=== PATIENT | female | born 1960 | race African-American/Black ===

== ENCOUNTER 2016-02-16 16:31 | Inpatient (IN) | payer MEDICAID ==
[~2016-02-16] VITALS: Ht 167.6 cm; Wt 95.4 kg
[~2016-02-16 16:31] MED LIST: AML5T PO; CARI-277 PO; DIAZ10TA3; DOCU-94 PO; ERGO1CAP6; ESOM40CA39 PO; GABA-339; LISI-646; LORA2TAB89 PO; NOR10T PO; PROM25TA5 PO; SERT-160; SUCR1TAB; TRAZ100T2; TRIA37.577 PO
[2016-02-16 17:55] LABS: Basophils # (auto) 0 uL; Basophils % (auto) 0.6 % (0.0-2.0); DEFINITIVE VIEW TRANSMISSION; Eosinophils # (auto) 0.1 uL; Eosinophils % (auto) 1.4 % (0.0-7.0); Hematocrit 37.8 % (36.0-46.0); Hemoglobin 12.1 g/dL (12.2-16.2); Lymphocytes # (auto) 1.3 uL; Lymphocytes % (auto) 17.6 % (10.0-50.0); Mean Corpuscular Hemoglobin 26.6 pg (28.0-32.0); Mean Corpuscular Volume 83.1 fL (80.0-100.0); Mean Platelet Volume 9.5 fL (7.4-10.4); Monocytes # (auto) 0.5 uL; Monocytes % (auto) 7.1 % (0.0-12.0); Neutrophils # (auto) 5.4 uL; Neutrophils % (auto) 73.3 % (37.0-80.0); Platelet Count (auto) 246 10^3/uL (140-450); White Blood Cell 7.4 10^3/uL (4.4-10.8)
[2016-02-16 18:05] LABS: Albumin 3.8 g/dL (3.4-5.0); BUN/Creatinine Ratio 13.3; Calcium 9.3 mg/dL (8.5-10.1); Potassium 4.3 mmol/L (3.5-5.1)
[2016-02-16 18:08] LABS: Bilirubin, Total 0.2 mg/dL (0.2-1.0); Total Protein 7.8 g/dL (6.4-8.2)
[2016-02-16] MEDS ORDERED: SODIUM CHLORIDE 0.9% 1,000 ML IV ONE (19:26)
[2016-02-16] MEDS ORDERED: HYDROmorphone HCL 2 MG/ML VL IV ONE (19:30)
[2016-02-16] MEDS ORDERED: InsuLIN REG 1unit/0.01ml Soln (100units/ml) IV ONE (19:30)
[2016-02-16] MEDS ORDERED: ONDANSETRON HCL 4 MG/2 ML VIAL IV ONE (19:30)
[2016-02-16] MEDS ORDERED: LACTULOSE 20Gm/30ML SOLN PO PRN (22:45)
[2016-02-16] MEDS ORDERED: DEXTROSE (50%) 50ML SYRG IV PRN (22:45)
[2016-02-16] MEDS ORDERED: ONDANSETRON HCL 4 MG/2 ML VIAL IV PRN (22:45)
[2016-02-16] MEDS: SODIUM CHLORIDE 0.9% 1,000 ML IV SCH (23:08)
[2016-02-16] MEDS: HYDROmorphone HCL 2 MG/ML VL IV PRN (23:21)
[2016-02-17] VITALS (7 sets, daily range): BP systolic 103–139; BP diastolic 46–83
[2016-02-17] MEDS: ACCU-CHEK COMFORT CURVE STRIP VI SCH ×5 (01:35→20:46)
[2016-02-17] MEDS: InsuLIN REG 1unit/0.01ml Soln (100units/ml) SC SCH ×5 (01:40→20:50)
[2016-02-17 05:35] LABS: Basophils # (auto) 0.1 uL; Basophils % (auto) 1.7 % (0.0-2.0); DEFINITIVE VIEW TRANSMISSION; Eosinophils # (auto) 0.2 uL; Eosinophils % (auto) 2.3 % (0.0-7.0); Hematocrit 32.8 % (36.0-46.0); Hemoglobin 10.5 g/dL (12.2-16.2); Lymphocytes # (auto) 2.5 uL; Lymphocytes % (auto) 32.4 % (10.0-50.0); Mean Corpuscular Hemoglobin 26.5 pg (28.0-32.0); Mean Corpuscular Volume 82.9 fL (80.0-100.0); Mean Platelet Volume 9.9 fL (7.4-10.4); Monocytes # (auto) 0.8 uL; Monocytes % (auto) 9.8 % (0.0-12.0); Neutrophils # (auto) 4.1 uL; Neutrophils % (auto) 53.8 % (37.0-80.0); Platelet Count (auto) 266 10^3/uL (140-450); Red Cell Distribution Width 14.1 % (11.6-16.0); White Blood Cell 7.7 10^3/uL (4.4-10.8)
[2016-02-17] MEDS: PROMETHAZINE HCL 25 MG/ML 1ML IV PRN ×2 (05:39→16:32)
[2016-02-17] MEDS: HYDROmorphone HCL 2 MG/ML VL IV PRN ×3 (05:39→18:41)
[2016-02-17 07:46] LABS: Albumin 3.3 g/dL (3.4-5.0); BUN/Creatinine Ratio 12.2; Bilirubin, Total 0.2 mg/dL (0.2-1.0); Potassium 3.6 mmol/L (3.5-5.1); Total Protein 6.6 g/dL (6.4-8.2)
[2016-02-17 08:12] LABS: Urine Bilirubin Negative (Negative); Urine Blood Negative /uL (Negative); Urine Color Yellow (Yellow); Urine Ketone Negative (Negative); Urine Nitrite Negative (Negative); Urine RBC <1 /hpf (0 - 4); Urine Urobilinogen Normal (Negative)
[2016-02-17 08:14] LABS: Urine Glucose 4+ mg/dL (Normal)
[2016-02-17] MEDS: PANTOPRAZOLE SODIUM 40 MG/10 ML VIAL IV SCH (09:33)
[2016-02-17] MEDS: LISINOPRIL 20 MG TAB PO SCH (09:34)
[2016-02-17] MEDS: ENOXAPARIN SOD 30 MG/0.3 ML SYRINGE SC SCH (09:34)
[2016-02-17] MEDS: HCTZ 25 MG TAB PO SCH (09:34)
[2016-02-17] MEDS: SODIUM CHLORIDE 0.9% 1,000 ML IV SCH ×2 (11:42→23:38)
[2016-02-17] MEDS ORDERED: glyBURIDE 5 MG TAB PO ONE (14:00)
[2016-02-17] MEDS ORDERED: DEXTROSE (50%) 50ML SYRG IV PRN (14:00)
[2016-02-17] MEDS: glyBURIDE 5 MG TAB PO SCH (23:33)
[2016-02-17] MEDS: INSULIN DETEMIR(LEVEMIR) 1unit/0.01ml Soln (100units/ml) SC SCH (23:37)
[2016-02-18] MEDS: ACCU-CHEK COMFORT CURVE STRIP VI SCH ×5 (00:50→15:54)
[2016-02-18] MEDS: InsuLIN REG 1unit/0.01ml Soln (100units/ml) SC SCH ×5 (00:57→16:01)
[2016-02-18] MEDS: PROMETHAZINE HCL 25 MG/ML 1ML IV PRN ×3 (05:27→17:01)
[2016-02-18] MEDS: HYDROmorphone HCL 2 MG/ML VL IV PRN ×4 (05:27→17:01)
[2016-02-18 05:42] VITALS: BP 118/60
[2016-02-18 09:00] VITALS: BP 146/62
[2016-02-18] MEDS: ENOXAPARIN SOD 30 MG/0.3 ML SYRINGE SC SCH (10:00)
[2016-02-18] MEDS: PANTOPRAZOLE SODIUM 40 MG/10 ML VIAL IV SCH (10:00)
[2016-02-18] MEDS: HCTZ 25 MG TAB PO SCH (10:00)
[2016-02-18] MEDS: LISINOPRIL 20 MG TAB PO SCH (10:00)
[2016-02-18] MEDS: glyBURIDE 5 MG TAB PO SCH (10:03)
[2016-02-18] MEDS: INSULIN DETEMIR(LEVEMIR) 1unit/0.01ml Soln (100units/ml) SC SCH (10:36)
[2016-02-18] MEDS: SODIUM CHLORIDE 0.9% 1,000 ML IV SCH (11:39)
[2016-02-18 13:00] VITALS: BP 122/60
[2016-02-18] MEDS ORDERED: GLY5T PO (14:45)
[2016-02-18] MEDS ORDERED: LEVEMIR SC (14:45)
[2016-02-18] MEDS ORDERED: LISI-646 PO (14:45)
[2016-02-18 17:00] VITALS: BP 138/108
[2016-02-18 17:13] VITALS: BP 138/108
== END 2016-02-18 19:30 | disposition home health service (06) | DRG 420 ==
LOC: ER 16:32 → TELE-WESTW 16:33
PROVIDERS: ADMIT Family Medicine; ATTEND Internal Medicine
DX: E11.65 Type 2 diabetes mellitus with hyperglycemia (principal); N17.9 Acute kidney failure, unspecified; M12.50 Traumatic arthropathy, unspecified site; E66.01 Morbid (severe) obesity due to excess calories; I10 Essential (primary) hypertension; E86.0 Dehydration; F32.9 Major depressive disorder, single episode, unspecified; M79.643 Pain in unspecified hand; E78.5 Hyperlipidemia, unspecified; F41.9 Anxiety disorder, unspecified; F51.04 Psychophysiologic insomnia; G89.4 Chronic pain syndrome; Z79.4 Long term (current) use of insulin; Z82.49 Family history of ischemic heart disease and other diseases of the circulatory system; Z83.3 Family history of diabetes mellitus; Z85.43 Personal history of malignant neoplasm of ovary; Z88.6 Allergy status to analgesic agent; Z88.8 Allergy status to other drugs, medicaments and biological substances; Z79.899 Other long term (current) drug therapy; Z90.710 Acquired absence of both cervix and uterus; Z90.49 Acquired absence of other specified parts of digestive tract; Z68.33 Body mass index [BMI] 33.0-33.9, adult
CPT/HCPCS: 36415; 80053; 80061; 81001; 82962; 83036; 83735; 85025; 87081; 94761; 96361; 96374; 96375; C9113; J1815; J2405

== ENCOUNTER 2016-03-14 16:50 | Emergency (ER) | payer MEDICAID ==
[~2016-03-14] VITALS: Ht 167.6 cm; Wt 90.8 kg
[~2016-03-14 16:50] MED LIST changes: +GLY5T PO; +LEVEMIR SC; +LISI-646 PO
[2016-03-14 20:21] VITALS: BP 133/81
[2016-03-14] MEDS ORDERED: PROMETHAZINE HCL 25 MG/ML 1ML IM ONE (21:15)
[2016-03-14] MEDS ORDERED: HYDROmorphone HCL 2 MG/ML VL IM ONE (21:15)
== END 2016-03-14 22:04 | disposition home or self-care (01) ==
LOC: ER 16:55
DX: G89.29 Other chronic pain (principal); M54.5 Low back pain; M51.36 Other intervertebral disc degeneration, lumbar region; M54.16 Radiculopathy, lumbar region; M19.90 Unspecified osteoarthritis, unspecified site; E11.9 Type 2 diabetes mellitus without complications; I10 Essential (primary) hypertension; Z85.9 Personal history of malignant neoplasm, unspecified; F12.10 Cannabis abuse, uncomplicated; Z88.6 Allergy status to analgesic agent; Z88.8 Allergy status to other drugs, medicaments and biological substances; Z79.4 Long term (current) use of insulin; Z79.899 Other long term (current) drug therapy
CPT/HCPCS: 82962; 96372; 99284; J1170; J2550

== ENCOUNTER 2016-04-02 16:33 | Emergency (ER) | payer MEDICAID ==
[~2016-04-02] VITALS: Ht 167.6 cm; Wt 89.4 kg
[2016-04-02 16:45] VITALS: BP 139/88
[2016-04-02] MEDS ORDERED: MEPERIDINE HCL (50 MG/ML) 1 ML VIAL IM ONE (19:45)
[2016-04-02] MEDS ORDERED: PROMETHAZINE HCL 25 MG/ML 1ML IM ONE (19:45)
== END 2016-04-02 20:08 | disposition home or self-care (01) ==
LOC: ER 16:39
DX: G89.4 Chronic pain syndrome (principal); M54.5 Low back pain; F11.20 Opioid dependence, uncomplicated; E11.9 Type 2 diabetes mellitus without complications; I10 Essential (primary) hypertension; M19.90 Unspecified osteoarthritis, unspecified site; Z79.4 Long term (current) use of insulin; Z88.6 Allergy status to analgesic agent; Z85.9 Personal history of malignant neoplasm, unspecified; Z79.899 Other long term (current) drug therapy; F12.10 Cannabis abuse, uncomplicated
CPT/HCPCS: 82962; 96372; 99284; J2175; J2550

== ENCOUNTER 2016-05-12 16:04 | Emergency (ER) | payer MEDICAID ==
[~2016-05-12] VITALS: Ht 172.7 cm; Wt 91.2 kg
[2016-05-12 16:23] VITALS: BP 145/92
[2016-05-12] MEDS ORDERED: HYDROmorphone HCL 2 MG/ML VL IM ONE (19:45)
[2016-05-12] MEDS ORDERED: PROMETHAZINE HCL 25 MG/ML 1ML IM ONE (19:45)
== END 2016-05-12 20:49 | disposition home or self-care (01) ==
LOC: ER 16:09
DX: G89.4 Chronic pain syndrome (principal); R51 Headache; G62.9 Polyneuropathy, unspecified; F11.20 Opioid dependence, uncomplicated; E11.9 Type 2 diabetes mellitus without complications; I10 Essential (primary) hypertension; M19.90 Unspecified osteoarthritis, unspecified site; Z85.9 Personal history of malignant neoplasm, unspecified; F12.10 Cannabis abuse, uncomplicated; Z88.6 Allergy status to analgesic agent; Z88.8 Allergy status to other drugs, medicaments and biological substances; Z79.899 Other long term (current) drug therapy; M54.2 Cervicalgia
CPT/HCPCS: 82962; 96372; 99284; J1170; J2550

== ENCOUNTER 2016-07-28 13:22 | Emergency (ER) | payer MEDICAID, OTHER ==
[~2016-07-28] VITALS: Ht 167.6 cm; Wt 90.7 kg
[2016-07-28 14:07] VITALS: BP 128/95
[2016-07-28] MEDS ORDERED: MORPHINE SULFATE 4 MG/ML SYRG IM ONE (15:15)
[2016-07-28] MEDS ORDERED: PROMETHAZINE HCL 25 MG/ML 1ML IM ONE (15:15)
== END 2016-07-28 16:01 | disposition home or self-care (01) ==
LOC: ER 13:22
DX: M46.86 Other specified inflammatory spondylopathies, lumbar region (principal); M06.9 Rheumatoid arthritis, unspecified; I10 Essential (primary) hypertension; E11.9 Type 2 diabetes mellitus without complications; Z90.710 Acquired absence of both cervix and uterus; Z85.9 Personal history of malignant neoplasm, unspecified; F12.10 Cannabis abuse, uncomplicated; Z79.4 Long term (current) use of insulin; Z88.6 Allergy status to analgesic agent; Z79.899 Other long term (current) drug therapy
CPT/HCPCS: 96372; 99284; J2270; J2550

== ENCOUNTER 2016-08-22 17:14 | Observation (INO) | payer MEDICARE, OTHER ==
[~2016-08-22] VITALS: Ht 167.6 cm; Wt 90.7 kg
[2016-08-22 17:42] LABS: CONDITION Y; Eosinophils # (auto) 0.1 uL; Lymphocytes # (auto) 2.5 uL; Mean Corpuscular Hgb Conc. 33.6 g/dL (32.0-36.0); Neutrophils # (auto) 5.7 uL; White Blood Cell 9.1 10^3/uL (4.4-10.8)
[2016-08-22 17:44] LABS: Basophils # (auto) 0.1 uL; Basophils % (auto) 1.1 % (0.0-2.0); Eosinophils % (auto) 1.6 % (0.0-7.0); Hematocrit 38.5 % (36.0-46.0); Hemoglobin 12.9 g/dL (12.2-16.2); Lymphocytes % (auto) 27.6 % (10.0-50.0); Mean Corpuscular Hemoglobin 28.1 pg (28.0-32.0); Mean Corpuscular Volume 83.5 fL (80.0-100.0); Mean Platelet Volume 8.2 fL (7.4-10.4); Monocytes # (auto) 0.6 uL; Monocytes % (auto) 6.8 % (0.0-12.0); Neutrophils % (auto) 62.9 % (37.0-80.0); Platelet Count (auto) 323 10^3/uL (140-450); Red Cell Distribution Width 14.4 % (11.6-16.0)
[2016-08-22 18:07] LABS: BUN/Creatinine Ratio 14.8; Bilirubin, Total 0.1 mg/dL (0.2-1.0); Calcium 9.6 mg/dL (8.5-10.1); Potassium 3.4 mmol/L (3.5-5.1); Total Protein 7.9 g/dL (6.4-8.2)
[2016-08-22 18:08] LABS: Urine RBC None Seen /hpf (0 - 4)
[2016-08-22] MEDS ORDERED: SODIUM CHLORIDE 0.9% 1,000 ML IV ONE (18:30)
[2016-08-22] MEDS ORDERED: ONDANSETRON HCL 4 MG/2 ML VIAL IV ONE (18:30)
[2016-08-22 18:39] LABS: Urine Bilirubin Negative (Negative); Urine Blood Negative /uL (Negative); Urine Color Yellow (Yellow); Urine Glucose Normal (Normal); Urine Ketone Negative (Negative); Urine Nitrite Negative (Negative); Urine Squamous Epithelial Cell FEW /hpf (<5); Urine Urobilinogen Normal (Negative)
[2016-08-22] MEDS ORDERED: MORPHINE SULF INJ 2 MG/ML SYRINGE 1ML IV ONE (19:00)
[2016-08-22] MEDS ORDERED: PROMETHAZINE HCL 25 MG/ML 1ML IV ONE (19:00)
[2016-08-22 19:18] LABS: INR 0.96 (0.9-1.15); Partial Thromboplastin Time 26.8 sec (22.64-33.71); Prothrombin Time 10.5 sec (9.37-12.3)
[2016-08-22] MEDS ORDERED: MEPERIDINE HCL (25 MG/ML) 1ML VIAL IV ONE (21:30)
[2016-08-22] MEDS ORDERED: POTASSIUM CHL 20 Meq TABLET PO ONE (22:00)
[2016-08-22 22:10] VITALS: BP 152/86
== END 2016-08-22 22:11 | disposition home or self-care (01) | DRG 556 ==
LOC: ER 17:24 → OVERFLOW 18:20 → ER 22:11
PROVIDERS: ADMIT Family Medicine; ATTEND Family Medicine
DX: M79.641 Pain in right hand (principal); M79.642 Pain in left hand; I10 Essential (primary) hypertension; F41.9 Anxiety disorder, unspecified; E11.9 Type 2 diabetes mellitus without complications; M19.90 Unspecified osteoarthritis, unspecified site; F32.9 Major depressive disorder, single episode, unspecified; Z83.3 Family history of diabetes mellitus; W34.00XA Accidental discharge from unspecified firearms or gun, initial encounter; Y93.89 Activity, other specified; Y92.69 Other specified industrial and construction area as the place of occurrence of the external cause; Y99.8 Other external cause status
CPT/HCPCS: 36415; 71010; 80053; 81001; 82962; 83735; 84484; 85025; 85610; 85730; 93005; 96361; 96374; 96375; 99285; G0378; J2175; J2270; J2550; J7030

== ENCOUNTER 2016-11-29 20:35 | Emergency (ER) | payer OTHER ==
[~2016-11-29] VITALS: Ht 167.6 cm; Wt 90.7 kg
[2016-11-29 20:40] VITALS: BP 108/85
[2016-11-29] MEDS ORDERED: HYDROmorphone HCL 2 MG/ML VL IM ONE (21:30)
[2016-11-29] MEDS ORDERED: PROMETHAZINE HCL 25 MG/ML 1ML IM ONE (21:30)
== END 2016-11-29 22:07 | disposition home or self-care (01) ==
LOC: ER 20:37
DX: G56.03 Carpal tunnel syndrome, bilateral upper limbs (principal); M19.90 Unspecified osteoarthritis, unspecified site; E11.9 Type 2 diabetes mellitus without complications; I10 Essential (primary) hypertension; Z90.710 Acquired absence of both cervix and uterus; Z90.49 Acquired absence of other specified parts of digestive tract; Z76.0 Encounter for issue of repeat prescription; Z79.899 Other long term (current) drug therapy; Z79.4 Long term (current) use of insulin
CPT/HCPCS: 96372; 99284; J1170; J2550

== ENCOUNTER 2016-12-20 11:42 | Emergency (ER) | payer OTHER, MEDICAID ==
[~2016-12-20] VITALS: Ht 167.6 cm; Wt 90.7 kg
[2016-12-20 12:32] VITALS: BP 126/72
[2016-12-20] MEDS ORDERED: HYDROmorphone HCL 2 MG/ML VL IM ONE (12:45)
[2016-12-20] MEDS ORDERED: ONDANSETRON HCL 4 MG/2 ML VIAL IM ONE (12:45)
[2016-12-20] MEDS ORDERED: PROMETHAZINE HCL 25 MG/ML 1ML IM ONE (13:00)
== END 2016-12-20 13:30 | disposition home or self-care (01) ==
LOC: ER 11:42
DX: G56.03 Carpal tunnel syndrome, bilateral upper limbs (principal); I10 Essential (primary) hypertension; E11.9 Type 2 diabetes mellitus without complications; M19.90 Unspecified osteoarthritis, unspecified site; Z79.4 Long term (current) use of insulin
CPT/HCPCS: 82962; 96372; 99284; J1170; J2405; J2550

== ENCOUNTER 2016-12-31 18:36 | Emergency (ER) | payer OTHER, MEDICAID ==
[~2016-12-31] VITALS: Ht 167.6 cm; Wt 87.5 kg
[2016-12-31 18:43] VITALS: BP 131/74
[2016-12-31] MEDS ORDERED: PROMETHAZINE HCL 25 MG/ML 1ML ONE (21:56)
[2016-12-31] MEDS ORDERED: HYDROmorphone HCL 2 MG/ML VL IM ONE (22:00)
[2016-12-31] MEDS ORDERED: PROMETHAZINE HCL 25 MG/ML 1ML IM ONE (22:15)
== END 2016-12-31 22:49 | disposition home or self-care (01) ==
LOC: ER 18:36
DX: M79.602 Pain in left arm (principal); M19.90 Unspecified osteoarthritis, unspecified site; E11.9 Type 2 diabetes mellitus without complications; I10 Essential (primary) hypertension; Z88.6 Allergy status to analgesic agent; Z79.82 Long term (current) use of aspirin; Z79.899 Other long term (current) drug therapy; Z90.49 Acquired absence of other specified parts of digestive tract; Z90.710 Acquired absence of both cervix and uterus
CPT/HCPCS: 96372; 99284; J1170; J2550

== ENCOUNTER 2017-01-20 20:18 | Emergency (ER) | payer OTHER, MEDICAID ==
[~2017-01-20] VITALS: Ht 167.6 cm; Wt 89.8 kg
[2017-01-20 20:35] VITALS: BP 138/96
== END 2017-01-20 23:51 | disposition home or self-care (01) ==
LOC: ER 20:18
DX: S61.412A Laceration without foreign body of left hand, initial encounter (principal); M79.642 Pain in left hand; M19.90 Unspecified osteoarthritis, unspecified site; E11.9 Type 2 diabetes mellitus without complications; I10 Essential (primary) hypertension; Z90.49 Acquired absence of other specified parts of digestive tract; Z90.710 Acquired absence of both cervix and uterus; Z88.6 Allergy status to analgesic agent; Z88.8 Allergy status to other drugs, medicaments and biological substances; X58.XXXA Exposure to other specified factors, initial encounter; Y93.89 Activity, other specified; Y92.89 Other specified places as the place of occurrence of the external cause; Y99.8 Other external cause status

== ENCOUNTER 2017-02-16 15:58 | Emergency (ER) | payer OTHER, MEDICAID ==
[~2017-02-16] VITALS: Ht 165.1 cm; Wt 87.1 kg
[2017-02-16 16:52] VITALS: BP 125/78
== END 2017-02-16 19:27 | disposition left against medical advice (07) ==
LOC: EDBD → ER 16:01
DX: M79.642 Pain in left hand (principal); Z53.21 Procedure and treatment not carried out due to patient leaving prior to being seen by health care provider

== ENCOUNTER 2017-02-21 13:52 | Emergency (ER) | payer OTHER, MEDICAID ==
[~2017-02-21] VITALS: Ht 165.1 cm; Wt 87.5 kg
[2017-02-21 14:37] VITALS: BP 119/86
== END 2017-02-21 14:37 | disposition left against medical advice (07) ==
LOC: EDBD → ER 13:52
DX: R51 Headache (principal); R22.0 Localized swelling, mass and lump, head; Z53.21 Procedure and treatment not carried out due to patient leaving prior to being seen by health care provider

== ENCOUNTER 2017-02-27 22:44 | Emergency (ER) | payer OTHER, MEDICAID ==
[2017-02-28] MEDS ORDERED: ONDANSETRON ODT 4 MG TAB PO ONE (01:15)
[2017-02-28] MEDS ORDERED: HYDROmorphone HCL 2 MG/ML VL IM ONE (01:15)
[2017-02-28] MEDS ORDERED: PROMETHAZINE HCL 25 MG/ML 1ML IM ONE ×2 (01:30→01:45)
[2017-02-28 01:59] VITALS: BP 136/83
== END 2017-02-28 02:30 | disposition home or self-care (01) ==
LOC: EDBD → ER 22:46
DX: M79.641 Pain in right hand (principal); M79.642 Pain in left hand; E11.9 Type 2 diabetes mellitus without complications; I10 Essential (primary) hypertension; Z90.710 Acquired absence of both cervix and uterus; Z90.49 Acquired absence of other specified parts of digestive tract; Z88.6 Allergy status to analgesic agent; Z88.8 Allergy status to other drugs, medicaments and biological substances; Z79.4 Long term (current) use of insulin; Z79.899 Other long term (current) drug therapy; Z83.3 Family history of diabetes mellitus; Z82.49 Family history of ischemic heart disease and other diseases of the circulatory system
CPT/HCPCS: 96372; 99284; J1170; J2550; Q0162

== ENCOUNTER 2017-03-11 02:50 | Emergency (ER) | payer OTHER, MEDICAID ==
[~2017-03-11] VITALS: Ht 167.6 cm; Wt 92.5 kg
[2017-03-11 07:12] VITALS: BP 136/68
[2017-03-11] MEDS ORDERED: MEPERIDINE HCL (50 MG/ML) 1 ML VIAL IM ONE (07:45)
[2017-03-11] MEDS ORDERED: PROMETHAZINE HCL 25 MG/ML 1ML IM ONE (07:45)
== END 2017-03-11 08:04 | disposition home or self-care (01) ==
LOC: ER 02:50 → EDBD 02:50 → ER 08:04
DX: G89.29 Other chronic pain (principal); M79.642 Pain in left hand; I10 Essential (primary) hypertension; E11.9 Type 2 diabetes mellitus without complications; M19.90 Unspecified osteoarthritis, unspecified site; F12.10 Cannabis abuse, uncomplicated; F17.200 Nicotine dependence, unspecified, uncomplicated; Z90.49 Acquired absence of other specified parts of digestive tract; Z90.710 Acquired absence of both cervix and uterus; Z88.6 Allergy status to analgesic agent; Z88.8 Allergy status to other drugs, medicaments and biological substances; Z79.4 Long term (current) use of insulin; Z79.891 Long term (current) use of opiate analgesic; Z79.899 Other long term (current) drug therapy
CPT/HCPCS: 96372; 99284; J2175; J2550

== ENCOUNTER 2017-03-30 01:23 | Emergency (ER) | payer OTHER, MEDICAID ==
[~2017-03-30] VITALS: Ht 167.6 cm; Wt 89.5 kg
[2017-03-30] MEDS ORDERED: methylPREDNISolone SOD SUCC 125 MG/2 ML VL IM ONE (02:15)
[2017-03-30] MEDS ORDERED: methylPREDNISolone SOD SUCC 125 MG/2 ML VL ONE (02:30)
[2017-03-30] MEDS ORDERED: IPRATROPIUM BROM 0.5 MG/2.5ML INH SOL NEB ONE (02:30)
[2017-03-30] MEDS ORDERED: ALBUTEROL SULF 2.5 MG/0.5ML(0.5%) NEB SOLN NEB ONE (02:30)
[2017-03-30 03:15] VITALS: BP 131/63
== END 2017-03-30 03:55 | disposition home or self-care (01) ==
LOC: ER 01:25
DX: J06.9 Acute upper respiratory infection, unspecified (principal); I10 Essential (primary) hypertension; E11.9 Type 2 diabetes mellitus without complications
CPT/HCPCS: 71046; 87804; 94640; 99285; J2930

== ENCOUNTER 2017-05-08 07:37 | Emergency (ER) | payer OTHER, MEDICAID ==
[~2017-05-08] VITALS: Ht 167.6 cm; Wt 89.8 kg
[2017-05-08] MEDS ORDERED: SODIUM CHLORIDE 0.9% 1,000 ML IV ONE (09:53)
[2017-05-08] MEDS ORDERED: MORPHINE SULFATE 4 MG/ML SYR/VIAL IV ONE (10:00)
[2017-05-08] MEDS ORDERED: ONDANSETRON HCL 4 MG/2 ML VIAL IV ONE (10:00)
[2017-05-08 10:31] LABS: Urine Bacteria NONE SEEN /hpf (None Seen); Urine Blood Negative /uL (Negative); Urine Specific Gravity 1.026 (1.001-1.035); Urine WBC 5 /hpf (0 - 5)
[2017-05-08 11:07] LABS: Basophils # (auto) 0.1 uL; Eosinophils # (auto) 0.1 uL; Eosinophils % (auto) 1.3 % (0.0-7.0); Hematocrit 41.7 % (36.0-46.0); Hemoglobin 13.2 g/dL (12.2-16.2); Lymphocytes # (auto) 1.6 uL; Mean Corpuscular Hgb Conc. 31.6 g/dL (32.0-36.0); Mean Corpuscular Volume 88.7 fL (80.0-100.0); Monocytes # (auto) 0.8 uL; Monocytes % (auto) 15.6 % (0.0-12.0); Neutrophils # (auto) 2.7 uL; Neutrophils % (auto) 52.1 % (37.0-80.0); Nucleated Red Blood Cells % 0.1 %; Platelet Count (auto) 238 10^3/uL (140-450); Red Cell Distribution Width 13.9 % (11.8-14.3); White Blood Cell 5.3 10^3/uL (4.4-10.8)
[2017-05-08 11:30] LABS: BUN/Creatinine Ratio 9.6; Calcium 9.3 mg/dL (8.5-10.1); Potassium 4.2 mmol/L (3.5-5.1)
[2017-05-08 11:46] VITALS: BP 123/67
== END 2017-05-08 14:02 | disposition home or self-care (01) ==
LOC: ER 07:37
DX: M79.644 Pain in right finger(s) (principal); G89.18 Other acute postprocedural pain; Z89.021 Acquired absence of right finger(s); F41.9 Anxiety disorder, unspecified; F32.9 Major depressive disorder, single episode, unspecified; E11.9 Type 2 diabetes mellitus without complications; I10 Essential (primary) hypertension; K21.9 Gastro-esophageal reflux disease without esophagitis; F12.10 Cannabis abuse, uncomplicated; F43.10 Post-traumatic stress disorder, unspecified; Z87.11 Personal history of peptic ulcer disease; Z79.4 Long term (current) use of insulin; Z88.6 Allergy status to analgesic agent; Z88.8 Allergy status to other drugs, medicaments and biological substances
CPT/HCPCS: 36415; 80048; 81001; 85025; 96361; 96374; 96375; 99284; J2270; J2405; J7030

== ENCOUNTER 2017-06-02 19:09 | Emergency (ER) | payer MEDICARE, MEDICAID ==
[~2017-06-02] VITALS: Ht 167.6 cm; Wt 86.2 kg
[2017-06-02 19:25] VITALS: BP 155/90
[2017-06-02] MEDS ORDERED: ACETAMINOPHEN/CODEINE#3 (300/30mg) TAB PO ONE (21:45)
[2017-06-02] MEDS ORDERED: cefTRIAXone SOD 1,000 MG VL IM ONE (21:45)
[2017-06-02] MEDS ORDERED: TETANUS-DIPTH-ACEL PERTUSSIS 0.5ML SYRG IM ONE (21:45)
== END 2017-06-02 22:02 | disposition home or self-care (01) ==
LOC: ER 19:12
DX: S61.451A Open bite of right hand, initial encounter (principal); M19.90 Unspecified osteoarthritis, unspecified site; E11.9 Type 2 diabetes mellitus without complications; I10 Essential (primary) hypertension; M54.9 Dorsalgia, unspecified; G89.4 Chronic pain syndrome; W54.0XXA Bitten by dog, initial encounter; Z79.4 Long term (current) use of insulin; Y93.89 Activity, other specified; Y99.8 Other external cause status; Y92.89 Other specified places as the place of occurrence of the external cause
CPT/HCPCS: 73130; 82962; 90471; 90715; 96372; 99284; J0696

== ENCOUNTER 2022-04-14 04:59 | Inpatient (IN) | payer MEDICARE, MEDICAID ==
[~2022-04-14] VITALS: Ht 167.6 cm; Wt 77.9 kg
[~2022-04-14 04:59] MED LIST changes: -GLY5T PO; +GLYB5TAB9 PO; -LISI-646; -LISI-646 PO; +LISI20TA28; +LISI20TA28 PO; -TRAZ100T2; +TRAZ100T3
[2022-04-14 06:39] LABS: Basophils # (auto) 0 10 ^3/uL (0-0.2); Basophils % (auto) 0.8 % (0.0-2.0); Eosinophils # (auto) 0.1 10 ^3/uL (0-0.8); Eosinophils % (auto) 2.5 % (0.0-7.0); Hematocrit 39.2 % (36.0-46.0); Lymphocytes # (auto) 1.8 10 ^3/uL (0.4-5.4); Lymphocytes % (auto) 32.9 % (10.0-50.0); Mean Corpuscular Hemoglobin 28.8 pg (28.0-32.0); Mean Corpuscular Hgb Conc. 33.1 g/dL (32.0-36.0); Monocytes # (auto) 0.6 10 ^3/uL (0-1.3); Monocytes % (auto) 10.7 % (0.0-12.0); Neutrophils % (auto) 53.1 % (37.0-80.0); Red Blood Cells 4.51 10^6/uL (4.0-5.20); Red Cell Distribution Width 13.6 % (11.8-14.3); White Blood Cell 5.6 10^3/uL (4.4-10.8)
[2022-04-14 06:56] LABS: Calcium 9.2 mg/dL (8.5-10.1); Magnesium 2.3 mg/dL (1.6-2.6); Potassium 3.7 mmol/L (3.5-5.1)
[2022-04-14 06:58] LABS: Bilirubin, Total 0.3 mg/dL (0.2-1.0); Total Protein 6.6 g/dL (6.4-8.2)
[2022-04-14 06:59] LABS: INR 0.95 (0.9-1.15); Partial Thromboplastin Time 25.6 sec (24.6-33.4)
[2022-04-14] MEDS ORDERED: ONDANSETRON HCL 4 MG/2 ML VIAL IV ONE (08:30)
[2022-04-14] MEDS ORDERED: ACETAMINOPHEN 325 MG TAB PO ONE (08:30)
[2022-04-14] MEDS ORDERED: diphenhdrAMINE HCL 50 MG/1 ML VL IV ONE (09:15)
[2022-04-14] MEDS ORDERED: ADENOSINE 64 MG in GIVE UN-DILUTED 0 ML IV STA (10:24)
[2022-04-14] MEDS ORDERED: NITROGLYCERIN 0.4 MG SL TAB SL PRN (12:45)
[2022-04-14] MEDS ORDERED: HYDROcodone-ACET 5/325MG TAB PO PRN (12:45)
[2022-04-14] MEDS ORDERED: MORPHINE SULFATE INJ 2 MG/ml SYRG IV PRN (12:45)
[2022-04-14] MEDS ORDERED: DEXTROSE (50%) 50ML SYRG IV PRN ×2 (13:00→13:15)
[2022-04-14] MEDS ORDERED: CARISOPRODOL 350 MG TAB PO PRN (13:00)
[2022-04-14] MEDS ORDERED: HYDROcodone-ACET 10/325MG TAB PO PRN (13:00)
[2022-04-14 13:41] VITALS: BP 131/73
[2022-04-14] MEDS: MORPHINE SULFATE INJ 2 MG/ml SYRG IV PRN ×2 (13:49→20:22)
[2022-04-14] MEDS: PROMETHAZINE HCL 25 MG/ML 1ML IV PRN ×2 (13:49→20:22)
[2022-04-14 15:29] LABS: Cholesterol 117 mg/dL (< 200); HDL Cholesterol 72 mg/dL (40-59); LDL Cholesterol 39 mg/dL (< 100); Triglycerides 70 mg/dL (< 150)
[2022-04-14] MEDS: ACCU-CHEK COMFORT CURVE STRIP VI SCH ×2 (16:54→22:40)
[2022-04-14] MEDS: InsuLIN REG 1unit/0.01ml Soln (100units/ml) SC SCH ×2 (16:54→22:41)
[2022-04-14] MEDS ORDERED: ACCU-CHEK COMFORT CURVE STRIP VI SCH (17:00)
[2022-04-14] MEDS ORDERED: InsuLIN REG 1unit/0.01ml Soln (100units/ml) SC SCH (17:00)
[2022-04-14] MEDS: DOCUSATE SOD 100 MG CAP PO SCH (22:48)
[2022-04-15] MEDS: PROMETHAZINE HCL 25 MG/ML 1ML IV PRN ×3 (03:04→17:25)
[2022-04-15] MEDS: MORPHINE SULFATE INJ 2 MG/ml SYRG IV PRN ×2 (03:05→08:41)
[2022-04-15 06:33] LABS: Basophils # (auto) 0 10 ^3/uL (0-0.2); Basophils % (auto) 0.8 % (0.0-2.0); Eosinophils # (auto) 0.1 10 ^3/uL (0-0.8); Eosinophils % (auto) 2.5 % (0.0-7.0); Hematocrit 37.6 % (36.0-46.0); Hemoglobin 12.6 g/dL (12.2-16.2); Lymphocytes # (auto) 2.1 10 ^3/uL (0.4-5.4); Lymphocytes % (auto) 44.1 % (10.0-50.0); Mean Corpuscular Hemoglobin 29.2 pg (28.0-32.0); Mean Corpuscular Hgb Conc. 33.6 g/dL (32.0-36.0); Monocytes # (auto) 0.4 10 ^3/uL (0-1.3); Neutrophils % (auto) 43.6 % (37.0-80.0); Nucleated Red Blood Cells % 0.2 %; Red Blood Cells 4.32 10^6/uL (4.0-5.20); Red Cell Distribution Width 13.7 % (11.8-14.3); White Blood Cell 4.7 10^3/uL (4.4-10.8)
[2022-04-15 06:39] LABS: Potassium 3.9 mmol/L (3.5-5.1)
[2022-04-15 06:48] LABS: Albumin 3.7 g/dL (3.4-5.0); BUN/Creatinine Ratio 12.2; Bilirubin, Total 0.4 mg/dL (0.2-1.0); Calcium 8.8 mg/dL (8.5-10.1); Total Protein 6.3 g/dL (6.4-8.2)
[2022-04-15] MEDS: ACCU-CHEK COMFORT CURVE STRIP VI SCH ×4 (07:00→22:07)
[2022-04-15] MEDS: InsuLIN REG 1unit/0.01ml Soln (100units/ml) SC SCH ×4 (07:00→22:00)
[2022-04-15] MEDS: DOCUSATE SOD 100 MG CAP PO SCH ×2 (10:23→22:07)
[2022-04-15] MEDS: amLODIPine BESYLATE 5 MG TAB PO SCH (10:29)
[2022-04-15] MEDS: LISINOPRIL 20 MG TAB PO SCH (10:29)
[2022-04-15] MEDS: HYDROmorphone HCL 2 MG/ML VL/or syr IV PRN ×2 (10:35→17:25)
[2022-04-15] MEDS ORDERED: PANTOPRAZOLE 40 MG/10 ML VIAL INJ IV ONE (11:15)
[2022-04-15 17:03] VITALS: BP 130/75
[2022-04-15 20:00] VITALS: BP 122/65
[2022-04-15 22:00] VITALS: BP 122/65
[2022-04-15] MEDS: PANTOPRAZOLE 40 MG/10 ML VIAL INJ IV SCH (22:08)
[2022-04-16] MEDS: PROMETHAZINE HCL 25 MG/ML 1ML IV PRN ×5 (00:38→20:16)
[2022-04-16] MEDS: HYDROmorphone HCL 2 MG/ML VL/or syr IV PRN ×3 (00:53→15:26)
[2022-04-16 05:00] VITALS: BP 125/68
[2022-04-16] MEDS: ACCU-CHEK COMFORT CURVE STRIP VI SCH ×4 (06:21→22:57)
[2022-04-16] MEDS: InsuLIN REG 1unit/0.01ml Soln (100units/ml) SC SCH ×4 (06:25→22:00)
[2022-04-16 08:00] VITALS: BP 136/77
[2022-04-16] MEDS: LISINOPRIL 20 MG TAB PO SCH (09:56)
[2022-04-16] MEDS: DOCUSATE SOD 100 MG CAP PO SCH ×2 (09:56→22:57)
[2022-04-16] MEDS: PANTOPRAZOLE 40 MG/10 ML VIAL INJ IV SCH ×2 (09:57→22:56)
[2022-04-16] MEDS: amLODIPine BESYLATE 5 MG TAB PO SCH (09:57)
[2022-04-16] MEDS ORDERED: MAALOX PLUS or MAALOX 30 ML PO PRN (10:45)
[2022-04-16] MEDS: MORPHINE SULFATE INJ 2 MG/ml SYRG IV PRN ×2 (11:21→20:16)
[2022-04-16 12:00] VITALS: BP 126/78
[2022-04-16] MEDS ORDERED: GASTROGRAFIN 30 ML SOL ONE (15:19)
[2022-04-16] MEDS ORDERED: OMNIPAQUE ORAL SOLN 500ml 12mg/ml PO ONE (15:45)
[2022-04-16 16:00] VITALS: BP 132/58
[2022-04-16] MEDS ORDERED: IOHEXOL 350 MG/ML 100ML IJ ONE (16:46)
[2022-04-16 17:50] LABS: Urine Bacteria FEW /hpf (None Seen); Urine Blood Negative /uL (Negative); Urine Specific Gravity 1.003 (1.001-1.035); Urine WBC 1 /hpf (0 - 5)
[2022-04-16 17:53] LABS: Alcohol, Urine < 3.0 mg/dL (0-10); Barbiturate Scree,Urine NEGATIVE (NEGATIVE); Benzodiazephine Screen, Urine NEGATIVE (NEGATIVE); Cannabinoid Screen, Urine POSITIVE (NEGATIVE); Cocaine Screen, Urine NEGATIVE (NEGATIVE); Opiate Scree,Urine NEGATIVE (NEGATIVE); Phencyclidine Screen, Urine NEGATIVE (NEGATIVE)
[2022-04-16 18:01] LABS: Amphetamine Screen, Urine NEGATIVE (NEGATIVE)
[2022-04-16 22:00] VITALS: BP 133/68
[2022-04-17] MEDS: MORPHINE SULFATE INJ 2 MG/ml SYRG IV PRN ×2 (02:37→08:37)
[2022-04-17] MEDS: PROMETHAZINE HCL 25 MG/ML 1ML IV PRN ×3 (02:37→13:18)
[2022-04-17 05:00] VITALS: BP 126/57
[2022-04-17] MEDS: ACCU-CHEK COMFORT CURVE STRIP VI SCH ×2 (06:53→13:19)
[2022-04-17] MEDS: InsuLIN REG 1unit/0.01ml Soln (100units/ml) SC SCH ×2 (06:54→11:30)
[2022-04-17 08:00] VITALS: BP 126/67
[2022-04-17] MEDS: DOCUSATE SOD 100 MG CAP PO SCH (08:37)
[2022-04-17] MEDS: PANTOPRAZOLE 40 MG/10 ML VIAL INJ IV SCH (08:37)
[2022-04-17] MEDS: amLODIPine BESYLATE 5 MG TAB PO SCH ×2 (08:38→10:00)
[2022-04-17] MEDS: LISINOPRIL 20 MG TAB PO SCH (08:38)
[2022-04-17 09:00] VITALS: BP 126/67
[2022-04-17] MEDS ORDERED: METOCLOPRAMIDE HCL 5MG/ml INJ 2ml VIAL IV ONE (11:00)
[2022-04-17 12:01] LABS: Basophils # (auto) 0.1 10 ^3/uL (0-0.2); Basophils % (auto) 1.3 % (0.0-2.0); Eosinophils # (auto) 0.2 10 ^3/uL (0-0.8); Eosinophils % (auto) 2.5 % (0.0-7.0); Hematocrit 39.3 % (36.0-46.0); Hemoglobin 13.1 g/dL (12.2-16.2); Lymphocytes # (auto) 1.5 10 ^3/uL (0.4-5.4); Lymphocytes % (auto) 23.7 % (10.0-50.0); Mean Corpuscular Hemoglobin 28.8 pg (28.0-32.0); Mean Corpuscular Hgb Conc. 33.4 g/dL (32.0-36.0); Mean Corpuscular Volume 86.3 fL (80.0-100.0); Monocytes # (auto) 0.5 10 ^3/uL (0-1.3); Monocytes % (auto) 8.6 % (0.0-12.0); Neutrophils % (auto) 63.9 % (37.0-80.0); Red Blood Cells 4.55 10^6/uL (4.0-5.20); Red Cell Distribution Width 13.7 % (11.8-14.3); White Blood Cell 6.3 10^3/uL (4.4-10.8)
[2022-04-17 12:14] LABS: Albumin 3.8 g/dL (3.4-5.0); Calcium 8.9 mg/dL (8.5-10.1); Potassium 3.9 mmol/L (3.5-5.1)
[2022-04-17 12:18] LABS: BUN/Creatinine Ratio 10.1; Bilirubin, Total 0.4 mg/dL (0.2-1.0); Total Protein 7.2 g/dL (6.4-8.2)
[2022-04-17] MEDS ORDERED: FLUMAZENIL 0.1 MG/ML INJ 10ML MDV IV ONE (12:21)
[2022-04-17] MEDS ORDERED: NALOXONE HCL 0.4 MG/ML VIAL ONE (12:21)
[2022-04-17 13:00] VITALS: BP 149/66
[2022-04-17] MEDS: HYDROmorphone HCL 2 MG/ML VL/or syr IV PRN (13:18)
[2022-04-17] MEDS: MIDAZOLAM HCL 2MG/2ML 2ml VIAL (1mg/ml) ONE ×3 (15:00→15:08)
[2022-04-17] MEDS: diphenhdrAMINE HCL 50 MG/1 ML VL ONE ×2 (15:00→15:03)
[2022-04-17] MEDS: fentaNYL CITRATE 100 MCG/2 ML VL ONE ×2 (15:00→15:05)
[2022-04-17] MEDS ORDERED: PANT40TA2 PO (16:47)
[2022-04-17 17:00] VITALS: BP 123/75
[2022-04-17 17:30] VITALS: BP 161/54
[2022-04-17] MEDS ORDERED: LIDOCAINE VISCOUS 2% 15ML UD ONE (19:04)
== END 2022-04-17 18:26 | disposition home or self-care (01) | DRG 392 ==
LOC: EDBD 04:59 → EDUNIT# 04:59 → ER 04:59 → TELE 12:42 → TELE-CENTR 04-15 09:24
PROVIDERS: ADMIT Registered Nurse; ATTEND Internal Medicine Geriatric Medicine
PROC: 0DB68ZX Excision of Stomach, Via Natural or Artificial Opening Endoscopic, Diagnostic (ICD-10-PCS; 2022-04-17)
PROC: 0DB48ZX Excision of Esophagogastric Junction, Via Natural or Artificial Opening Endoscopic, Diagnostic (ICD-10-PCS; 2022-04-17)
PROC: 0DB98ZX Excision of Duodenum, Via Natural or Artificial Opening Endoscopic, Diagnostic (ICD-10-PCS; principal; 2022-04-17 14:56)
DX: K29.90 Gastroduodenitis, unspecified, without bleeding (principal); R07.89 Other chest pain; F41.9 Anxiety disorder, unspecified; E66.9 Obesity, unspecified; I10 Essential (primary) hypertension; Z20.822 Contact with and (suspected) exposure to COVID-19; E78.5 Hyperlipidemia, unspecified; K44.9 Diaphragmatic hernia without obstruction or gangrene; G89.29 Other chronic pain; Z82.49 Family history of ischemic heart disease and other diseases of the circulatory system; Z83.3 Family history of diabetes mellitus; Z85.43 Personal history of malignant neoplasm of ovary; Z85.41 Personal history of malignant neoplasm of cervix uteri; Z88.6 Allergy status to analgesic agent; Z90.710 Acquired absence of both cervix and uterus; Z85.3 Personal history of malignant neoplasm of breast; Z80.3 Family history of malignant neoplasm of breast; Z68.27 Body mass index [BMI] 27.0-27.9, adult; K21.9 Gastro-esophageal reflux disease without esophagitis
CPT/HCPCS: 36415; 43239; 71045; 74177; 78452; 80053; 80061; 80307; 81001; 82378; 82962; 83036; 83735; 83880; 84443; 84484; 85025; 85379; 85610; 85730; 86301; 86304; 86850; 86900; 86901; 87426; 93005; 93017; 93306; 96365; 96375; 99291; C9113; G0378; J0153; J1815; J2250; J2405

== ENCOUNTER 2024-01-04 03:10 | Inpatient (IN) | payer MEDICARE, MEDICAID ==
[~2024-01-04] VITALS: Ht 160 cm; Wt 72.6 kg
[~2024-01-04 03:10] MED LIST changes: -LEVEMIR SC; -LISI20TA28; -LISI20TA28 PO; +LISI20TA56; +LISI20TA56 PO; +PANT40TA2 PO; +PROM25TA10 PO; -PROM25TA5 PO; +TRAZ-228; -TRAZ100T3
--- NOTE | 2024-01-04 03:43 | ED.PDOC ---
History of Present Illness HPI Comments 63 y/o F with Hx of anxiety, metastatic breast cancer to kidney - breast CA in remission - DM II, GERD, HLD, HTN and obesity BIBA c/o left-sided chest pain, radiating to the back and left shoulder, associated with nausea, onset around 1:00 a.m. Patient states the pain woke her from sleep. Patient localizes the pain to the area underneath her left-breast, pressure-like in quality, and is reproducible with pressure applied to area. Patient denies fever, cough, vomiting, abdominal pain shortness breath or edema. Chief Complaint: Chest Pain Time Seen by MD: 03:10 Primary Care Provider: NONE Reviewed Notes: Nurses Notes, Gas Roller Operator Notes, Medications, Allergies Allergies: Coded Allergies: Aspirin (Verified Allergy, Severe, 01/21/16) Ketorolac Tromethamine (Unverified Allergy, Severe, 05/30/14) Ondansetron (Verified Allergy, Mild, 04/14/22) NAUSEA/ VOMITING, HIVES Ibuprofen (Verified Allergy, Unknown, 05/30/14) Home Meds Active Scripts Pantoprazole Sodium Sesquihydr (Protonix) 40 Mg Tab, 40 MG PO DAILY, #30 TAB Prov:JG VANG MD 04/17/22 Lisinopril (Lisinopril) 20 Mg Tab, 30 MG PO DAILY for 30 Days, TAB Prov:CAMMY YOO MD 02/18/16 Glyburide (Micronase) 5 Mg Tb, 5 MG PO BID, #60 Prov:CAMMY YOO MD 02/18/16 Esomeprazole Magnesium Trihydr (Nexium) 40 Mg Cap, 40 MG PO BID, #60 CAP Prov:AICHA DILLON MD 05/31/14 Reported Medications Trazodone Hcl (Trazodone Hcl) 100 Mg Tab, #60 12/21/14 Sertraline Hcl (Sertraline Hcl) 100 Mg Tab, #60 12/21/14 Gabapentin (Gabapentin) 600 Mg Tab, #90 12/21/14 Ergocalciferol (Vitamin D) 50,000 Unt Cap, #12 12/21/14 Diazepam (Diazepam) 10 Mg Tab, #60 12/21/14 Sucralfate (Sucralfate) 1 Gm Tab, #120 12/21/14 Lisinopril (Lisinopril) 20 Mg Tab, #30 12/21/14 Lorazepam (Ativan) 2 Mg Tab, 1 TAB PO QPM, TAB 05/30/14 Carisoprodol (Soma) 350 Mg Tab, 350 MG PO BID PRN for pain, TAB 05/30/14 Promethazine Hcl (Promethazine Hcl) 25 Mg Tab, 1 TAB PO [id number], TAB 05/30/14 Docusate Sodium (Colace) 100 Mg Cap, 1 CAP PO BID, CAP 05/30/14 Amlodipine Besylate (NORVASC TABLET) 5 Mg Tb, 0.5 TAB PO DAILY, TAB 05/30/14 Hydrochlorothiazide W/Triamter (Triamterene/Hydrochloroth) 1 Tab Tab, 1 TAB PO DAILY, TAB 05/30/14 Hydrocodone-Acetaminophen ([place] 10/325MG) 1 Tab Tb, 1 TAB PO every 4 hours PRN for pain, TAB 05/30/14 Information Source: Patient, Emergency Med Personnel Mode of Arrival: EMS Severity: Moderate Timing: Hours Duration: Since onset Prehospital treatment: 12 Lead EKG, Twist Maker Past Medical History PAST MEDICAL HISTORY: Anxiety, Arthritis, Cancer (metastatic breast cancer to kidney, breast CA in remission ), Depression, DM (type II ), GERD, High Lipids, HTN Past Medical History (Other): angina, obesity Surgical History: Appendectomy, Hysterectomy MOLD POLISHER History: No Pertinent MOLD POLISHER History Family History Family History: No family hx of DM, No family hx of HTN Social History Smoker: Non-Smoker Alcohol: Denies ETOH Use Drugs: Marijuana Lives In: Home Constitutional: denies: chills, diaphoresis, fatigue, fever, malaise, sweats, weakness, others EENTM: denies: blurred vision, double vision, ear bleeding, ear discharge, ear drainage, ear pain, ear ringing, eye pain, eye redness, hearing loss, mouth pain, mouth swelling, nasal discharge, nose bleeding, nose congestion, nose pain, photophobia, tearing, throat pain, throat swelling, voice changes, others Respiratory: denies: cough, hemoptysis, orthopnea, SOB at rest, shortness of breath, SOB with excertion, stridor, wheezing, others Cardiovascular: reports: chest pain; denies: dizzy spells, diaphoresis, Dyspnea on exertion, edema, irregular heart beat, left arm pain, lightheadedness, palpitations, PND, syncope, others Gastrointestinal: reports: nausea; denies: abdomen distended, abdominal pain, blood streaked bowels, constipated, diarrhea, dysphagia, difficulty swallowing, hematemesis, melena, poor appetite, poor fluid intake, rectal bleeding, rectal pain, vomiting, others Genitourinary: denies: abnormal vagina bleeding, burning, dyspareunia, dysuria, flank pain, frequency, hematuria, incontinence, pain, , vagina discharge, urgency, others Neurological: denies: dizziness, fainting, headache, left sided numbness, left sided weakness, numbness, paresthesia, pre-existing deficit, right sided numbness, right sided weakness, seizure, speech problems, tingling, tremors, weakness, others Musculoskeletal: denies: back pain, gout, joint pain, joint swelling, muscle pain, muscle stiffness, neck pain, others Integumetry: denies: bruises, change in color, change in hair/nails, dryness, laceration, lesions, lumps, rash, wounds, others Allergic/Immunocompromised: denies: Difficulty Healing, Frequent Infections, Hives, Itching, others Hematologic/Lymphatic: denies: anemia, blood clots, easy bleeding, easy bruising, swollen glands, others Endocrine: denies: excessive hunger, excessive sweating, excessive thirst, excessive urination, flushing, intolerance to cold, intolerance to heat, unexplained weight gain, unexplained weight loss, others Psychiatric: denies: anxiety, bipolar disorder, depression, hopeless, panic disorder, schizophrenia, sleepless, suicidal, others All Other Systems: Reviewed and Negative Physical Exam General Appearance: No Apparent Distress HEENT: Normal ENT Inspection Neck: Full Range of Motion, Normal Inspection Respiratory: Lungs Clear, No Accessory Muscle Use, No Respiratory Distress, Normal Breath Sounds, Other (Pain somewhat reproducible with palpation of the left upper chest wall) Cardiovascular: No Edema, No JVD, Regular Rate/Rhythm Breast Exam: Deferred Gastrointestinal: Non Tender, Soft Genitalia: Deferred Pelvic: Deferred Rectal: Deferred Extremities: Normal inspection, Normal range of motion, Non-tender, No pedal edema Neurologic: Alert, No Motor Deficits, Normal Affect, Normal Mood, No Sensory Deficits Cerebellar Function: NOT DONE Reflexes: NOT DONE Skin: Dry, Normal Color, Warm Lymphatic: NOT DONE Was a procedure done? Was a procedure done?: No EKG EKG : Comments Sinus rhythm, rate 72, normal intervals, normal axis, normal QRS, upsloping ST elevation in leads V2 and V3 Differential Dx Considerations may include: ACS, HI, angina, chest wall pain, GI etiology of pain, arrhythmia, among others X-Ray, Labs, Meds, VS Vital Signs Date Time Temp Pulse Resp B/P (MAP) Pulse Ox O2 Delivery O2 Flow Rate FiO2 01/04/24 04:08 81 14 129/70 (89) 97 01/04/24 04:06 Room Air* 0 21 01/04/24 03:44 69 01/04/24 03:23 98.0 74 14 118/70 (86) 98 01/04/24 03:12 72 Lab Test 01/04/24 03:55 Range/Units White Blood Count 6.5 4.4-10.8 10^3/uL Red Blood Count 4.61 4.0-5.20 10^6/uL Hemoglobin 13.4 12.2-16.2 g/dL Hematocrit 40.3 36.0-46.0 % Mean Corpuscular Volume 87.4 80.0-100.0 fL Mean Corpuscular Hemoglobin 29.1 28.0-32.0 pg Mean Corpuscular Hemoglobin Concent 33.3 32.0-36.0 g/dL Red Cell Distribution Width 13.8 11.8-14.3 % Platelet Count 237 140-450 10^3/uL Mean Platelet Volume 8.2 6.9-10.8 fL Neutrophils (%) (Auto) 45.5 37.0-80.0 % Lymphocytes (%) (Auto) 40.3 10.0-50.0 % Monocytes (%) (Auto) 11.3 0.0-12.0 % Eosinophils (%) (Auto) 2.2 0.0-7.0 % Basophils (%) (Auto) 0.7 0.0-2.0 % Neutrophils # (Auto) 2.9 1.6-8.6 10 ^3/uL Lymphocytes # (Auto) 2.6 0.4-5.4 10 ^3/uL Monocytes # (Auto) 0.7 0-1.3 10 ^3/uL Eosinophils # (Auto) 0.1 0-0.8 10 ^3/uL Basophils # (Auto) 0 0-0.2 10 ^3/uL Nucleated Red Blood Cells 0.2 % Sodium Level 143 136-145 mmol/L Potassium Level 3.7 3.5-5.1 mmol/L Chloride Level 105 98-107 mmol/L Carbon Dioxide Level 31 20-31 mmol/L Anion Gap 7 5-15 Blood Urea Nitrogen 12 9-23 mg/dL Creatinine 1.11 H 0.550-1.02 mg/dL Glomerular Filtration Rate Calc 56 >90 mL/min BUN/Creatinine Ratio 10.8 10.0-20.0 Serum Glucose 104 74-106 mg/dL Calcium Level 10.1 8.7-10.4 mg/dL Total Bilirubin 0.3 0.2-1.0 mg/dL Aspartate Amino Transferase (AST) 13 13-40 U/L Alanine Aminotransferase (ALT) 21 7-40 U/L Alkaline Phosphatase 97 46-116 U/L Troponin I High Sensitivity < 3 L </=34 ng/L B-Type Natriuretic Peptide Pending Total Protein 7.0 5.7-8.2 g/dL Albumin 4.9 H 3.2-4.8 g/dL Current Medications Medications (Trade) Dose Ordered Sig/Norma Route Start Time Stop Time Status Last Admin Ondansetron HCl (Zofran) 4 mg ONCE ONCE IV 01/04/24 04:15 01/04/24 04:16 DC 01/04/24 04:37 Diphenhydramine HCl (Benadryl Injection) 50 mg ONCE ONCE IV 01/04/24 04:45 01/04/24 04:46 DC 01/04/24 04:50 PROCEDURE(s): CXRP - CHEST PORTABLE REASON: cp ORDER NUMBER(s): [id number], ACCESSION NUMBER(s): [id number] CHEST RADIOGRAPH Indication: cp Technique: Single frontal view of the chest was obtained COMPARISON: XY CHEST PORTABLE on DOS: 04/14/22 FINDINGS: Lines and Tubes: None Lungs: Mild congestion Pleura: No effusion. No pneumothorax. Cardiomediastinal contours: Unremarkable Bones: Unremarkable IMPRESSION: Mild congestion X-Ray, Labs, Meds, VS Comment 63 y/o F with Hx of anxiety, metastatic breast cancer to kidney - breast CA in remission - DM II, GERD, HLD, HTN and obesity brought in by EMS complaining of chest pain and nausea Vitals unremarkable Exam remarkable for somewhat reproducible pain with palpation of the left upper chest wall EKG sinus rhythm, upsloping ST elevation in leads 1 and 2 Case was discussed with the on-call STEMI patient intake representative Dr. Osullivan, who reviewed the EKG and did not feel the patient meets STEMI criteria. He recommended repeating the EKG in 30 minutes for any changes. Repeat EKG was performed 30 minutes later, with no significant change. Chest x-ray IMPRESSION: Mild congestion CBC, CMP remarkable for creatinine 1.11, no other abnormalities of acute significance BNP pending Troponin negative Patient treated with the following in the ED: Nitro-Bid was ordered, however patient refused Patient received Zofran 4 mg IV, but developed oral and throat itching, so received Benadryl 50 mg IV and dexamethasone 10 mg IV. She received Reglan 10 mg IV. On re-evaluation, patient stated her nausea had improved, but chest pain was still present. She subsequently received morphine 4 mg IV. Plan is to admit the patient for Cardiology evaluation. Time of 1ST Reevaluation: 06:40 Reevaluation 1ST: Unchanged Time of 2ND Reevaluation: 05:35 Reevaluation 2ND: Improved Patient Education/Counseling: Diagnosis, Treatment Family Education/Counseling: No Family Present Departure 1 Departure Time of Disposition: 05:35 Impression: Primary Impression: Chest pain Qualified Codes: I25.9 - Chronic ischemic heart disease, unspecified Disposition: ADMITTED INPATIENT Admit to: Tele Condition: Guarded Critical Care Note Critical Care Time?: No Stability Stability form required: No Heart Score Heart Score: Heart Score Response (Comments) Value History Moderate Suspicious [address]-Deviation 2 Age 45-64 1 Risk Factors >3 or Hx ASHD 2 Troponin Normal limit 0 Total 6 I personally scribed for ALISON SHER MD ([email or web address]) on 01/04/24 at 03:43. Electronically submitted by Dewey Stein [email or web address]). ALISON SHER MD Jan 04, 2024 03:43
[2024-01-04] MEDS: NITROGLYCERIN 2% OINT 1GM PKG TD ONE (04:05)
[2024-01-04 04:21] LABS: Basophils # (auto) 0 10 ^3/uL (0-0.2); Basophils % (auto) 0.7 % (0.0-2.0); Eosinophils # (auto) 0.1 10 ^3/uL (0-0.8); Eosinophils % (auto) 2.2 % (0.0-7.0); Hematocrit 40.3 % (36.0-46.0); Hemoglobin 13.4 g/dL (12.2-16.2); Lymphocytes # (auto) 2.6 10 ^3/uL (0.4-5.4); Lymphocytes % (auto) 40.3 % (10.0-50.0); Mean Corpuscular Hemoglobin 29.1 pg (28.0-32.0); Mean Corpuscular Hgb Conc. 33.3 g/dL (32.0-36.0); Mean Corpuscular Volume 87.4 fL (80.0-100.0); Monocytes # (auto) 0.7 10 ^3/uL (0-1.3); Monocytes % (auto) 11.3 % (0.0-12.0); Neutrophils # (auto) 2.9 10 ^3/uL (1.6-8.6); Neutrophils % (auto) 45.5 % (37.0-80.0); Nucleated Red Blood Cells % 0.2 %; Platelet Count (auto) 237 10^3/uL (140-450); Red Blood Cells 4.61 10^6/uL (4.0-5.20); Red Cell Distribution Width 13.8 % (11.8-14.3); White Blood Cell 6.5 10^3/uL (4.4-10.8)
[2024-01-04] MEDS: ONDANSETRON HCL 4 MG/2 ML VIAL IV ONE (04:25)
[2024-01-04 04:32] LABS: Alanine Aminotransferase 21 U/L (7-40); Albumin 4.9 g/dL (3.2-4.8); Alkaline Phosphatase 97 U/L (46-116); Anion Gap 7 (5-15); Aspartate Aminotransferase 13 U/L (13-40); BUN/Creatinine Ratio 10.8 (10.0-20.0); Bilirubin, Total 0.3 mg/dL (0.2-1.0); Blood Urea Nitrogen 12 mg/dL (9-23); Calcium 10.1 mg/dL (8.7-10.4); Carbon Dioxide 31 mmol/L (20-31); Chloride 105 mmol/L (98-107); Glucose 104 mg/dL (74-106); Potassium 3.7 mmol/L (3.5-5.1); Sodium 143 mmol/L (136-145)
[2024-01-04] MEDS: diphenhdrAMINE HCL 50 MG/1 ML VL ONE (04:39)
[2024-01-04] MEDS: diphenhdrAMINE HCL 50 MG/1 ML VL IV ONE (04:50)
[2024-01-04] MEDS: METOCLOPRAMIDE HCL 5MG/ml INJ 2ml VIAL IV ONE ×2 (04:54→10:20)
[2024-01-04] MEDS: DexAMETHasone SOD PHOS 10MG/1ML VIAL INJ IV ONE (04:54)
--- NOTE | 2024-01-04 05:12 | DVH ---
CHEST RADIOGRAPH Indication: cp Technique: Single frontal view of the chest was obtained COMPARISON: XY CHEST PORTABLE on DOS: 04/14/22 FINDINGS: Lines and Tubes: None Lungs: Mild congestion Pleura: No effusion. No pneumothorax. Cardiomediastinal contours: Unremarkable Bones: Unremarkable IMPRESSION: Mild congestion
[2024-01-04] MEDS: MORPHINE SULFATE 4 MG/ML SYR/VIAL IV ONE (06:15)
--- NOTE | 2024-01-04 06:34 | ECG ---
[facility] Test Date: 2024-01-04 Test Time: 03:44:52 Pat Name: JAYA DUDLEY Department: ED Room: Gender: F Drive Thru Order Taker: MAR : 1960 Requested By: ALISON BETANCOURT Order Number: [id number] Reading MD: Measurements Intervals [place] Rate: 69 P: 85 MI: 158 QRS: 69 QRSD: 83 T: 55 QT: 380 QTc: 407 Interpretive Statements Sinus rhythm Left atrial enlargement Left ventricular hypertrophy Please click the below link to view image of tracing.
[2024-01-04] MEDS: HYDROcodone-ACET 10/325MG TAB PO ONE (06:36)
[2024-01-04] MEDS: PROMETHAZINE HCL 6.25 MG/5 ML ORAL SYRUP PO ONE (08:09)
[2024-01-04 08:20] VITALS: BP 104/44; PULSE 85; RESP 17; TEMP 97.8; O2SAT 100
[2024-01-04] MEDS ORDERED: CARISOPRODOL 350 MG TAB PO PRN ×2 (08:30→09:30)
[2024-01-04] MEDS ORDERED: METOCLOPRAMIDE HCL 5MG/ml INJ 2ml VIAL IV PRN (08:30)
[2024-01-04] MEDS ORDERED: ERGOCALCIFEROL 50,000 UNIT(1.25MG) CAP PO SCH (08:30)
[2024-01-04] MEDS ORDERED: LORazepam 0.5 MG TAB PO PRN (08:30)
[2024-01-04] MEDS ORDERED: DOCUSATE SOD 100 MG CAP PO PRN (08:30)
[2024-01-04] MEDS ORDERED: MORPHINE SULFATE INJ 2 MG/ml SYRG IV PRN ×2 (08:30)
[2024-01-04] MEDS ORDERED: DEXTROSE (50%) 50ML SYRG IV PRN (08:30)
[2024-01-04] MEDS ORDERED: NITROGLYCERIN 0.4 MG SL TAB SL PRN (08:30)
[2024-01-04] MEDS ORDERED: HYDROcodone-ACET 5/325MG TAB PO PRN (08:30)
[2024-01-04] MEDS ORDERED: SODIUM CHLORIDE 0.9% 1,000 ML IV SCH (08:30)
[2024-01-04] MEDS ORDERED: PROMETHAZINE HCL 25 MG RECT SUPP PR ONE (08:30)
[2024-01-04] MEDS ORDERED: TEMAZEPAM 15 MG CAP PO PRN (08:30)
[2024-01-04] MEDS ORDERED: HYDROcodone-ACET 10/325MG TAB PO PRN (08:30)
[2024-01-04] MEDS ORDERED: ACETAMINOPHEN 325 MG TAB PO PRN (08:30)
--- NOTE | 2024-01-04 09:27 | DVH ---
Procedure: CT CHEST WITHOUT CONTRAST Reason for study/Clinical History: Chest pain. Comparison Study: None available at time of dictation. Exam Date: 01/04/2024 08:59 AM TECHNIQUE: Multidetector CT of the chest was performed from the lung apices to the upper abdomen with out the use of intravenous contract. Axial, coronal and sagittal multiplanar reformats were performed . Radiation Dose Information: CT Dose: CTDI volume is 6.89 mGy. Dose-length product is 237.33 mGy*cm The dose indicators for CT are the volume Computed Tomography (CT) Dose Index (CTDIvol) and the Dose Length Product (DLP), and are measured in units of mGy and mGy-cm, respectively. These indicators are not patient dose, but values generated from the CT scanner acquisition factors. The report includes radiation exposure data for exposures received during this examination. Radiation optimization: All CT scans at this facility use at least one of these dose optimization jaye hniques: automated exposure control mA and/or kV adjustment per patient size (includes targeted exam s where dose is matched to clinical indication) or iterative reconstruction. FINDINGS Lungs: No focal consolidation. No suspicious appearing pulmonary nodule or mass. Mild dependent atele ctasis in the posterior lung bases. The central airways are clear. Heart/Vascular Structures: Normal heart size. No pericardial effusion. Lymph Nodes: No thoracic lymphadenopathy. Pleura: No pleural effusion or significant pneumothorax. Musculoskeletal: No acute osseous abnormality. Multilevel thoracic spondylosis. Soft tissues: There is a 4.8 cm intramuscular lipoma in the left lateral chest wall. Upper abdomen: Gallbladder is surgically absent. The remaining visualized solid abdominal viscera gr ossly appears unremarkable. IMPRESSION: 1. There is no acute intrathoracic abnormality. 2. 4.8 cm intramuscular lipoma in the left lateral chest wall. HS:Y
--- NOTE | 2024-01-04 09:29 | DVHHP2 ---
History of Present Illness Reason for Visit: chest pain History of Present Illness 63 yo with extensive history including breast cancer metastatic currently stated to be in remission with a history HTN, HLD, DM and anxiety comes to the ed stating that she was having chest pain radiating to the back best described as acute severe pain associated with nausea and vomiting lc doesnt have a stated CAD history but still does have multiple comorbid conditions patient recommended for admission for further evaluation at this time Cardiovascular: HTN, hyperipidemia GI: GERD Heme/Onc: Cancer Endocrine: Diabetes Review of Systems Constitutional: Yes: Fever, Weakness Eyes: No: Pain, Vision change, Conjunctivae inflammation, Eyelid inflammation, Other, Redness ENT: No: Ear pain, Ear discharge, Nose pain, Nose discharge, Nose congestion, Mouth pain, Mouth swelling, Throat pain, Throat swelling, Other Respiratory: Shortness of breath, SOB with excertion; No: Cough, Dry, Wheezing, Hemoptysis, Pleuritic Pain, Sputum, Wheezing, Other Cardiovascular: Chest Pain; No: Palpitations, Orthopnea, Paroxysmal Noc. Dyspnea, Edema, Lt Headedness, Other Gastrointestinal: Nausea, Vomiting; No: Abdominal Pain, Diarrhea, Constipation, Melena, Hematochezia, Other Genitourinary: No Dysuria, No Frequency, No Incontinence, No Hematuria, No Retention, No Other Musculoskeletal: No: other, neck pain, shoulder pain, arm pain, back pain, hand pain, leg pain, foot pain Skin: No: Rash, Lesions, Jaundice, Bruising, Other Neurological: No: Weakness, Numbness, Incoordination, Change in speech, Confusion, Seizures, Other Allergies: Coded Allergies: Aspirin (Verified Allergy, Severe, 01/21/16) Ketorolac Tromethamine (Unverified Allergy, Severe, 05/30/14) Ondansetron (Verified Allergy, Mild, 04/14/22) NAUSEA/ VOMITING, HIVES Ibuprofen (Verified Allergy, Unknown, 05/30/14) Medications Current Medications Medications Dose Ordered Sig/Norma Route Start Time Stop Time Status Last Admin Dose Admin Methylprednisolone Sodium Succinate 20 mg BID IV 01/04/24 10:00 Metoclopramide HCl 10 mg Q4HPRN PRN IV 01/04/24 08:30 Amlodipine Besylate 2.5 mg DAILY PO 01/04/24 10:00 UNV Carisoprodol 350 mg BID PRN PO 01/04/24 08:30 UNV Docusate Sodium 100 mg BID PO 01/04/24 10:00 Ergocalciferol 50,000 unit QWEEKLY PO 01/04/24 08:30 UNV Glyburide 5 mg BID PO 01/04/24 10:00 UNV Triamterene/HCTZ 1 cap DAILY PO 01/04/24 10:00 UNV Acetaminophen/ Hydrocodone Bitart 1 tab Q4HPRN PRN PO 01/04/24 08:30 UNV Lisinopril 20 mg DAILY PO 01/04/24 10:00 UNV Pantoprazole Sodium 40 mg DAILY PO 01/04/24 10:00 UNV Patient Own Medication 40 mg BID PO 01/04/24 10:00 UNV Patient Own Medication 1 tab QPM PO 01/04/24 18:00 UNV Patient Own Medication 1 tab [id number] PO 01/04/24 08:30 UNV Diagnostic Test (Pha) 1 strip IQ4HR 01/04/24 12:00 Insulin Human Regular IQ4HR SC 01/04/24 12:00 Dextrose 50 ml UD PRN IV 01/04/24 08:30 Sodium Chloride 1,000 ml @ 60 mls/hr [id number] IV 01/04/24 08:30 Lorazepam 0.5 mg Q6HP PRN PO 01/04/24 08:30 Docusate Sodium 100 mg BIDPRN PRN PO 01/04/24 08:30 Acetaminophen 650 mg Q6HP PRN PO 01/04/24 08:30 Temazepam 15 mg QHSP PRN PO 01/04/24 08:30 Acetaminophen/ Hydrocodone Bitart 1 tab Q4HP PRN PO 01/04/24 08:30 Morphine Sulfate 2 mg Q4HPRN PRN IV 01/04/24 08:30 Nitroglycerin 0.4 mg Q5MINP PRN SL 01/04/24 08:30 Morphine Sulfate 2 mg Q30M PRN IV 01/04/24 08:30 Exam Vital Signs Vital Signs Date Time Temp Pulse Resp B/P (MAP) Pulse Ox O2 Delivery O2 Flow Rate FiO2 01/04/24 08:00 66 01/04/24 06:00 16 132/59 (83) 97 01/04/24 04:06 Room Air* 0 21 01/03/24 03:23 98.0 General Appearance: Alert HEENT: Atraumatic, PERRLA Respiratory: Clear to auscultation, Normal air movement Cardiovascular: Regular rate, Normal S1, Normal S2 Abdominal: Normal bowel sounds, Soft Extremities: No clubbing, No cyanosis, No edema Skin: No rashes, No breakdown Neuro: Normal speech Psych/Mental Status: Mental status NL, Mood NL Labs/Xrays Labs Test 01/04/24 07:21 01/04/24 03:55 Range/Units Troponin I High Sensitivity < 3 L </=34 ng/L White Blood Count 6.5 4.4-10.8 10^3/uL Red Blood Count 4.61 4.0-5.20 10^6/uL Hemoglobin 13.4 12.2-16.2 g/dL Hematocrit 40.3 36.0-46.0 % Mean Corpuscular Volume 87.4 80.0-100.0 fL Mean Corpuscular Hemoglobin 29.1 28.0-32.0 pg Mean Corpuscular Hemoglobin Concent 33.3 32.0-36.0 g/dL Red Cell Distribution Width 13.8 11.8-14.3 % Platelet Count 237 140-450 10^3/uL Mean Platelet Volume 8.2 6.9-10.8 fL Neutrophils (%) (Auto) 45.5 37.0-80.0 % Lymphocytes (%) (Auto) 40.3 10.0-50.0 % Monocytes (%) (Auto) 11.3 0.0-12.0 % Eosinophils (%) (Auto) 2.2 0.0-7.0 % Basophils (%) (Auto) 0.7 0.0-2.0 % Neutrophils # (Auto) 2.9 1.6-8.6 10 ^3/uL Lymphocytes # (Auto) 2.6 0.4-5.4 10 ^3/uL Monocytes # (Auto) 0.7 0-1.3 10 ^3/uL Eosinophils # (Auto) 0.1 0-0.8 10 ^3/uL Basophils # (Auto) 0 0-0.2 10 ^3/uL Nucleated Red Blood Cells 0.2 % Sodium Level 143 136-145 mmol/L Potassium Level 3.7 3.5-5.1 mmol/L Chloride Level 105 98-107 mmol/L Carbon Dioxide Level 31 20-31 mmol/L Anion Gap 7 5-15 Blood Urea Nitrogen 12 9-23 mg/dL Creatinine 1.11 H 0.550-1.02 mg/dL Glomerular Filtration Rate Calc 56 >90 mL/min BUN/Creatinine Ratio 10.8 10.0-20.0 Serum Glucose 104 74-106 mg/dL Calcium Level 10.1 8.7-10.4 mg/dL Total Bilirubin 0.3 0.2-1.0 mg/dL Aspartate Amino Transferase (AST) 13 13-40 U/L Alanine Aminotransferase (ALT) 21 7-40 U/L Alkaline Phosphatase 97 46-116 U/L B-Type Natriuretic Peptide 3.68 0-100 pg/mL Total Protein 7.0 5.7-8.2 g/dL Albumin 4.9 H 3.2-4.8 g/dL Assessment/Plan Assessment/Plan Admit to med/surge Chest Pain history HTN, HLD Breast ca trops negative in the ed 3rd trop pending continued with patients home meds associated with Nausea/Vomiting prn meds for managing N/V Prn pain meds DM iss mild sugars reasonable range Plan discussed with: Patient My Orders Orders - YANCI RENE MD Procedure Category Date Status Time Chest Without Contrast CT 01/04/24 Taken 08:26 Methylprednisolone PHA 01/04/24 In Process Sod Succ (Solu Medrol 10:00 Metoclopramide PHA 01/04/24 In Process Injection (Reglan 08:30 Urinalysis LAB 01/04/24 Logged 08:27 Amlodipine Tablet PHA 01/04/24 Logged (Norvasc Tablet) 10:00 Carisoprodol Tablet PHA 01/04/24 Logged (Soma Tablet) 08:30 Docusate Sodium PHA 01/04/24 In Process Capsule (Colace 10:00 Ergocalciferol PHA 01/04/24 Logged (Vitamin D 50,000 08:30 Glyburide Tablet PHA 01/04/24 Logged (Micronase Tablet) 10:00 Triamterene/Hctz PHA 01/04/24 Logged (Dyazide 37.5/25mg 10:00 Hydrocodone-Acet PHA 01/04/24 Logged 10/325mg Tab (Ophiem 08:30 Lisinopril Tablet PHA 01/04/24 Logged (Zestril Tablet) 10:00 Pantoprazole Tablet PHA 01/04/24 Logged (Protonix Tablet) 10:00 (Nf) Esomeprazole PHA 01/04/24 Logged Magnesium Trihydr (Nex 10:00 (Nf) Lorazepam PHA 01/04/24 Logged (Ativan) 18:00 (Nf) Promethazine Hcl PHA 01/04/24 Logged 08:30 Glucose Blood PHA 01/04/24 In Process (Accu-Chek Comfort 12:00 Insulin R (Human) PHA 01/04/24 In Process (Insulin R) 12:00 Dextrose 50% Syringe PHA 01/04/24 In Process 08:30 Admit ADMIT 01/04/24 Transmitted 08:27 Code Status CODE 01/04/24 Transmitted 08:27 Vital Signs [facility] 01/04/24 In Process 08:27 Review Orders With [facility] 01/04/24 In Process Adm. 08:27 Consistent DIET 01/04/24 Transmitted Carb(Ccho)Diabetes Breakfast Sodium Chloride 0.9% PHA 01/04/24 In Process 08:30 Lorazepam Tablet PHA 01/04/24 In Process (Ativan Tablet) 08:30 Docusate Sodium PHA 01/04/24 In Process Capsule (Colace 08:30 Acetaminophen Tablet PHA 01/04/24 In Process (Tylenol Tablet) 08:30 Temazepam (Restoril) PHA 01/04/24 In Process 08:30 Notify Of Changes [facility] 01/04/24 In Process From Base 08:27 Advance Directive [facility] 01/04/24 In Process 08:27 Basic Metabolic Panel LAB 01/05/24 Verified 04:00 Complete Blood Count LAB 01/05/24 Verified 04:00 Patient Condition ORDERS 01/04/24 Transmitted 08:27 Allergies TRACEY 01/04/24 In Process 08:27 Hydrocodone-Acet PHA 01/04/24 In Process 5/325mg Tab (Ophiem 08:30 Morphine Sulfate PHA 01/04/24 In Process Injection 08:30 Nitroglycerin PHA 01/04/24 In Process Sublingual (Ntrostat 08:30 Morphine Sulfate PHA 01/04/24 In Process Injection 08:30 Stat Ekg For Chest TRACEY 01/04/24 In Process Pain 08:27 Notify Of Changes [facility] 01/04/24 In Process From Base 08:27 Medical Office Professional Instructor For [facility] 01/04/24 In Process 24 Hours 08:27 Emergency Dysrhythmia [facility] 01/04/24 In Process Protocol 08:27 Rhythm Strips Once [facility] 01/04/24 In Process Every Shift 08:27 Oxygen By Nasal RT 01/04/24 Transmitted Cannula 08:27 Problem List: (1) Hypertension (2) Hyperglycemia (3) Chronic pain syndrome (4) Intractable nausea and vomiting (5) Chest pain Date of Service: Jan 04, 2024 Billing Provider: YANCI RENE MD Common Visit Codes: [id number] INP/OBS CARE (HIGH) YANCI RENE MD Jan 04, 2024 09:29
[2024-01-04] MEDS ORDERED: PROMETHAZINE HCL 6.25 MG/5 ML ORAL SYRUP PO PRN (09:45)
[2024-01-04] MEDS ORDERED: glyBURIDE 5 MG TAB PO SCH (10:00)
[2024-01-04] MEDS ORDERED: LISINOPRIL 20 MG TAB PO SCH (10:00)
[2024-01-04] MEDS ORDERED: amLODIPine BESYLATE 5 MG TAB PO SCH (10:00)
[2024-01-04] MEDS ORDERED: methylPREDNISolone SOD SUCC 40 MG/ML VL IV SCH (10:00)
[2024-01-04] MEDS ORDERED: PATIENTS OWN MEDICATION (Esomeprazole Magnesium Trihydr (Nexium) 40 MG) PO SCH (10:00)
[2024-01-04] MEDS ORDERED: TRIAMTERENE/HCTZ 37.5/25 MG CAP/TAB PO SCH (10:00)
[2024-01-04] MEDS ORDERED: PANTOPRAZOLE 40 MG TAB PO SCH (10:00)
[2024-01-04] MEDS: DOCUSATE SOD 100 MG CAP PO SCH (10:21)
--- NOTE | 2024-01-04 10:38 | ECG ---
[facility] Test Date: 2024-01-04 Test Time: 03:12:23 Pat Name: JAYA DUDLEY Department: ED Room: [address] [place] [address] Gender: F Roll Dough Divider: MAR : 1960 Requested By: ALISON BETANCOURT Order Number: [id number] Reading MD: Measurements Intervals [place] Rate: 72 P: 88 DE: 162 QRS: 70 QRSD: 85 T: 54 QT: 364 QTc: 399 Interpretive Statements Sinus rhythm Consider left atrial enlargement Consider left ventricular hypertrophy ST elevation, consider anterior injury Please click the below link to view image of tracing.
[2024-01-04] MEDS ORDERED: InsuLIN REG 1unit/0.01ml Soln (100units/ml) SC SCH (12:00)
[2024-01-04] MEDS ORDERED: ACCU-CHEK COMFORT CURVE STRIP VI SCH (12:00)
[2024-01-04] MEDS ORDERED: LORazepam 0.5 MG TAB PO SCH (18:00)
== END 2024-01-04 10:33 | disposition left against medical advice (07) | DRG 313 ==
LOC: ER 03:10 → OVERFLOW 08:27
PROVIDERS: ADMIT Hospitalist; ATTEND Hospitalist
DX: R07.89 Other chest pain (principal); K21.9 Gastro-esophageal reflux disease without esophagitis; E78.5 Hyperlipidemia, unspecified; Z53.29 Procedure and treatment not carried out because of patient's decision for other reasons; I10 Essential (primary) hypertension; G89.4 Chronic pain syndrome; Z90.710 Acquired absence of both cervix and uterus; Z88.6 Allergy status to analgesic agent; Z85.3 Personal history of malignant neoplasm of breast; Z85.528 Personal history of other malignant neoplasm of kidney; Z79.4 Long term (current) use of insulin; Z79.899 Other long term (current) drug therapy; Z88.8 Allergy status to other drugs, medicaments and biological substances; E11.65 Type 2 diabetes mellitus with hyperglycemia
CPT/HCPCS: 36415; 71045; 71250; 80053; 83880; 84484; 85025; 93005; 96374; 96375; G0378; J1100; J2405